=== PATIENT | female | born 1955 | race Caucasian/White ===

== ENCOUNTER 2017-03-09 04:53 | Emergency (ER) | payer SELFPAY ==
[~2017-03-09] VITALS: Ht 157.5 cm; Wt 90.7 kg
[2017-03-09] MEDS ORDERED: AMLO2.5T PO (05:07)
[2017-03-09] MEDS ORDERED: LISI40TA4 PO (05:07)
[2017-03-09 05:19] LABS: *BILIRUBIN,URIN NEGATIVE (NEGATIVE); *BLOOD, URINE Trace-intact (NEGATIVE); *CLARITY,URINE CLEAR (CLEAR); *COLOR,URINE YELLOW (YELLOW); *KETONES,URINE NEGATIVE (NEGATIVE); *PROTEIN,URINE NEGATIVE (NEGATIVE); *UROBILINOGEN,URINE 0.2 E.U./dl (NORMAL); LEUKOCYTE ESTERASE ,URINE TRACE (NEGATIVE); NITRITE, URINE NEGATIVE (NEGATIVE); PH,URINE 5.5 (5.0-8.0); UGLUCOSE NEGATIVE (NEGATIVE)
[2017-03-09 05:26] LABS: BACTERIA,URINE FEW /HPF (NONE SEEN); RBC,URINE 0-3 /HPF (0-3); SQUAMOUS EPITHELIAL CELL,UR FEW /HPF (NONE SEEN); WBC,URINE 0-3 /HPF (0-3)
[2017-03-09 05:28] VITALS: BP 210/119
[2017-03-09] MEDS ORDERED: LISINOPRIL 10 MG TABLET PO ONE (05:30)
[2017-03-09] MEDS ORDERED: CLONIDINE HCL 0.1 MG TABLET PO ONE (05:30)
[2017-03-09] MEDS ORDERED: LISINOPRIL 10 MG TABLET ONE (05:35)
[2017-03-09] MEDS ORDERED: CLONIDINE HCL 0.1 MG TABLET ONE (05:35)
--- NOTE | 2017-03-09 06:10 | NUR ---
Addendum to previous note: Prior to MD going to bedside to speak with pt. Pt refused to have her blood pressure re-checked with the larger cuff.
--- NOTE | 2017-03-09 06:10 | NUR ---
Called into room. Pt taking bp cuff off complaining it is too tight and sts she needs a larger cuff. Offered to take bp on lower arm, pt refused. Retrieved larger bp cuff and returned to room to find pt removing monitor leads and pulse ox. Pt sts " I know my bp. This is too much. This is just too much I want to leave." notified and to bedside to speak with pt
--- NOTE | 2017-03-09 06:24 | NUR ---
PATIENT WAS D/C'ED FROM ER. GAVE ACI WHICH PATIENT COMPLETED UNDERSTOOD. WALKED OUT WITH STEADY GAIT WITH NO DISTRESS NOTED. WAS IN HOSPITAL LOBBY ASKING FOR [employer] [facility] [employer] [facility] BUT WHEN VOUCHER WAS NOT READILY AVAILABLE PATIENT WAS WITNESS GETTING IN A PRIVATE VEHICHLE WHICH EARL MARCANO WITNESS PATIENT DRIVING IN THE HOSPITAL
== END 2017-03-09 06:32 | disposition left against medical advice (07) ==
LOC: ER 04:59
DX: G47.00 Insomnia, unspecified (principal); F41.9 Anxiety disorder, unspecified; I10 Essential (primary) hypertension; R00.0 Tachycardia, unspecified
CPT/HCPCS: 81001; 93005; 99285; A4663 ×2